=== PATIENT | female | born 2000 | race Caucasian/White ===

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

== ENCOUNTER 2023-09-24 20:41 | Emergency (ER) | payer OTHER ==
[~2023-09-24] VITALS: Ht 165.1 cm; Wt 73.9 kg
[2023-09-24 20:50] VITALS: BP 128/76; PULSE 105; RESP 18; TEMP 99.2
[2023-09-24 21:04] VITALS: BP 128/76; PULSE 105; RESP 18; TEMP 99.2; O2SAT 98
[2023-09-24] MEDS ORDERED: IBUP-2213 PO (21:08)
[2023-09-24] MEDS ORDERED: PRED20TA5 PO (21:08)
[2023-09-24] MEDS: KETOROLAC 60 MG/2 ML VIAL IM ONE (21:11)
== END 2023-09-24 21:21 | disposition home or self-care (01) ==
LOC: MED 20:41
DX: J02.9 Acute pharyngitis, unspecified (principal); R03.0 Elevated blood-pressure reading, without diagnosis of hypertension
CPT/HCPCS: 96372; 99283; J1885